=== PATIENT | male | born 1980 | race Caucasian/White ===

== ENCOUNTER 2016-07-30 11:45 | Emergency (ER) | payer OTHER | END 2016-07-30 14:09 | disposition home or self-care (01) | LOC: ER1 11:45 | DX: S70.12XA Contusion of left thigh, initial encounter (principal); F17.210 Nicotine dependence, cigarettes, uncomplicated; W17.89XA Other fall from one level to another, initial encounter; Z91.81 History of falling | CPT/HCPCS: 73502; 73552; 96372; 99283; J1885 ==